=== PATIENT | female | born 1950 | race Caucasian/White ===

== ENCOUNTER 2020-07-31 18:01 | Emergency (ER) | payer MEDICARE, OTHER ==
[~2020-07-31] VITALS: Ht 177.8 cm; Wt 104.0 kg
[2020-07-31] MEDS ORDERED: DIPH,PERTUSS(ACELL),TET VAC/PF 0.5 ML SYRINGE. VAX IM ONE (18:45)
[2020-07-31 18:54] VITALS: BP 131/75
--- NOTE | 2020-07-31 19:41 | RAD ---
Exam: CT head and cervical spine INDICATION: Fall TECHNIQUE: Sequential axial images through the head and cervical spine were obtained without the admi nistration of IV contrast. Exposure: One or more of the following in the visualized dose reduction techniques were utilized for this examination: 1. Automated exposure control 2. Adjustment of the MA and/or KV according to patient size 3. Use of iterative of reconstructive technique Comparisons: None FINDINGS: Head: No focal parenchymal lesion or hemorrhage is identified. There is no midline shift or sulcal effaceme nt. Patchy hypodensity in the periventricular white matter. No acute vascular territory infarction is olivia ntified. Boggs-white distinction is preserved. The ventricular system is within normal limits without compression hydrocephalus. The basal cisterns are well maintained. The visualized portions of the paranasal sinuses and mastoid air cells are well-pneumatized. No acute fractures. Cervical spine: Vertebral body heights and alignment are well-maintained. Fracture to the cervical spine is not identified. Multilevel spondylotic change in cervical spine with degenerative disc disease greatest at C5-C6 and C6-C7. Visualized paraspinal soft tissues are unremarkable. IMPRESSION: 1. No acute intracranial abnormality. 2. Negative CT C-spine for acute traumatic injury. Electronically signed by: aPrdeep Bolaños MD (07/31/2020 7:38 PM) [facility]
[2020-07-31] MEDS ORDERED: BACITRACIN ZINC TOPICAL OINT PACKET. TP ONE (20:00)
--- NOTE | 2020-07-31 20:08 | PHYS DOC ---
Past History Past Medical History: Diabetes, Hypertension (TOAÑ KRAMER APRN) Alcohol Use: None (TOAÑ KRAMER APRN) Adult General Chief Complaint Chief Complaint: MECHANICAL FALL HPI HPI Patient is a 69-year-old female who presents emergency department chief complaint of approximately 1 hour prior to arrival she stumbled while walking i o a doorway and landed on both knees and then hit her face on the ground before she can get her hands out in front of her. Patient denies loss of consciousness, patient states that her glasses hit against her forehead on the left and bent her glasses. Patient complains of bilateral knee pain, and forehead pain. Patient denies neck pain. Patient denies loss of consciousness, denies dizziness, denies visual disturbances. Patient states she is a type II diabetic, has a history of hypertension, states she takes lisinopril and atorvastatin. Patient states she has an allergy to sulfa medications. Patient reports her last tetanus shot may have been greater than 5 years ago. Patient reports her pain at a 2 out of 10 when at rest, however if someone palpates her knees or forehead it increases up to a 7 out of 10. Patient denies chest pain, shortness of breath, cough or congestion. Patient denies nausea, vomiting, diarrhea, patient denies abdominal pains. Patient denies any other physical complaints or physical concerns. (TOÑA KRAMER APRN) Review of Systems Review of Systems 14 body systems of review of systems have been reviewed. See HPI for pertinent positives and negative responses, otherwise all other systems are negative, nonpertinent or noncontributory. (TOÑA KRAMER APRN) Current Medications Current Medications Current Medications Medications (Trade) Dose Ordered Sig/Elisabeth Start Time Stop Time Status Last Admin Dose Admin Bacitracin (Bacitracin Topical Pkt) 1 pkt 1X ONCE 07/31/20 20:00 07/31/20 20:01 DC Diphtheria/ Pertussis/Tetanus Vacc (ADACEL TDap SYRINGE) 0.5 ml ONCE ONCE 07/31/20 18:45 07/31/20 18:46 DC 07/31/20 19:33 0.5 ML (TOÑA KRAMER APRN) Allergies Allergies Allergies Coded Allergies Type Severity Reaction Last Updated Verified Sulfa (Sulfonamide Antibiotics) Allergy Unknown 07/31/20 Yes (TOÑA KRAMER APRN) Physical Exam Physical Exam Constitutional: Well developed, well nourished, no acute distress, non-toxic appearance. 69-year-old female in no apparent distress. HENT: Normocephalic, atraumatic, bilateral external ears normal, oropharynx moist, no oral exudates, nose normal. No skull depressions or contusions appreciated, patient does have an abrasion over the left brow, no malocclusion, no drooling, no trismus. Skin is intact, no battles sign, no raccoon eyes, no drainage from bilateral auditory canals. Eyes: PERRLA, EOMI, conjunctiva normal, no discharge. Neck: Normal range of motion, no tenderness, supple, no stridor. No nuchal rigidity, no meningismus signs. Cardiovascular: No cyanosis, distal cap refill less than 2 seconds. Lungs & Thorax: Patient in no apparent respiratory distress, no audible adventitious lung sounds appreciated. Skin: Warm, dry, no erythema, no rash. See H EENT assessment for skin abrasion note. Back: No tenderness. Extremities: No tenderness, no cyanosis, no clubbing, ROM intact, no edema. Except for bilateral knees, pain to palpation around knee joint, limited passive range of motion related to pain, distal cap refill less than 2 seconds. No swelling appreciated, no crepitus appreciated, 2+ dorsalis pedis/posterior tibial pulses. Neurologic: Alert and oriented X 3, normal motor function, normal sensory function, no focal deficits noted. Psychologic: Affect normal, judgement normal, mood normal. (TOÑA KRAMER APRN) Current Patient Data Vital Signs Vital Signs Date Time Temp Pulse Resp B/P (MAP) Pulse Ox O2 Delivery O2 Flow Rate FiO2 07/31/20 18:54 97.7 75 16 131/75 (93) 98 Room Air (TOÑA KRAMER APRN) EKG EKG [] (TOÑA KRAMER APRN) Radiology/Procedures Radiology/Procedures PATIENT: WANG MERCADO ACCOUNT: [id number] : 1950 LOCATION: ER AGE: 69 SEX: F EXAM STATUS: REG ER ORD. PHYSICIAN: TOÑA KRAMER APRN REASON: fall PROCEDURE: CT HEAD AND CERVICAL SPINE WO Exam: CT head and cervical spine INDICATION: Fall TECHNIQUE: Sequential axial images through the head and cervical spine were obtained without the administration of IV contrast. Exposure: One or more of the following in the visualized dose reduction techniques were utilized for this examination: 1. Automated exposure control 2. Adjustment of the MA and/or KV according to patient size 3. Use of iterative of reconstructive technique Comparisons: None FINDINGS: Head: No focal parenchymal lesion or hemorrhage is identified. There is no midline s hift or sulcal effacement. Patchy hypodensity in the periventricular white matter. No acute vascular territory infarction is identified. Boggs-white distinction is preserved. The ventricular system is within normal limits without compression hydrocephalus . The basal cisterns are well maintained. The visualized portions of the paranasal sinuses and mastoid air cells are well-pneumatized. No acute fractures. Cervical spine: Vertebral body heights and alignment are well-maintained. Fracture to the cervical spine is not identified. Multilevel spondylotic change in cervical spine with degenerative disc disease greatest at C5-C6 and C6-C7. Visualized paraspinal soft tissues are unremarkable. IMPRESSION: 1. No acute intracranial abnormality. 2. Negative CT C-spine for acute traumatic injury. Electronically signed by: Pardeep Veliz MD (07/31/2020 7:38 PM) [facility] DICTATED AND SIGNED BY: PARDEEP VELIZ MD DATE: 07/31/201915 CC: TOÑA KRAMER APRN; [facility] WELLINGTON ~MTH0 0 Signed PATIENT: WANG MERCADO ACCOUNT: [id number] : 1950 LOCATION: ER AGE: 69 SEX: F EXAM STATUS: REG ER ORD. PHYSICIAN: TOÑA KRAMER APRN REASON: fall PROCEDURE: KNEE BILAT 3V EXAM: AP, lateral and oblique views of bilateral knees DATE: 07/31/2020 6:34 PM CLINICAL INDICATION: Reason: fall / Spl. Instructions: / History: COMPARISON: None. FINDINGS: Negative for acute or subacute fracture. Bilateral knee joint osteoarthritis with mild medial compartment joint space narrowing and tricompartment osteophytes, greater on the left. Negative focal soft tissue swelling. Negative retained radiopaque foreign body. Small left knee joint effusion. No right knee joint effusion. Joint body posterior left joint line measuring 2-3 cm. IMPRESSION: 1. No evidence of acute fracture or dislocation. 2. Bilateral knee joint osteoarthritis, greater on the left 3. Small left knee joint effusion. 4. Prominent joint body posterior joint line. Electronically signed by: Fede Lewis MD (07/31/2020 8:11 PM) [facility] DICTATED AND SIGNED BY: FEDE LEWIS MD DATE: 07/31/202008 CC: TOÑA KRAMER APRN; LUIS WELLINGTON ~MTH0 0 (TOÑA KRAMER APRN) Heart Score C/O Chest Pain: No Risk Factors: Risk Factors: DM, Current or recent (<one month) smoker, HTN, HLP, family history of CAD, obesity. Risk Scores: Risk Factors: DM, Current or recent (<one month) smoker, HTN, HLP, family history of CAD, obesity. (TOÑA KRAMER APRN) Course & Med Decision Making Course & Med Decision Making Pertinent Labs and Imaging studies reviewed. (See chart for details) 69-year-old female, vital signs reviewed, presents emergency department after reported fall while walking through a door, patient's physical examination concerning for possible bony injury versus contusion of bilateral knees, forehead abrasion, there is no contusion however patient did states she struck her forehead onto ground before being able to catch herself with her hands. Patient did deny consciousness, patient is not on any blood thinners, the patient denied any C-spine pain, related to patient's age and report of striking head will order CT head and C-spine, bilateral knee x-rays, cleanse and dress abrasions with bacitracin. Patient does not recall when her last tetanus status was, will bring up-to-date with Adacel Tdap today. Offered patient pain medication, patient states that her pain is not that bad and does not feel as if she needs pain medication in the ED today. Patient is ambulatory with steady gait. CT head and C-spine negative for acute process, bilateral knee x-rays negative for acute fracture, did note surgical repair of the right knee, patient did reveal MCL repair in the years ago. Discussed radiologic imaging with patient, diagnosis of contusion and abrasions to bilateral knees, abrasion to forehead, RICE therapy, abrasion care, follow-up with PCP this Monday for ongoing pain management and wound evaluation, offered patient pain medications, patient states her pain was a 1 or 2 still denies need for pain medication in the ED today, patient states she will take [id number] Tylenol and/or NSAIDs at home for aches and pains. Patient gave verbal understanding of discharge home instructions, strict follow- up with PCP this Monday for reevaluation, return to ER precautions and concerns, patient states she is ready to go home, states she is thankful she does not have any brain injury, patient was discharged home without incident. (TOÑA KRAMER APRN) Dragon Disclaimer Dragon Disclaimer This electronic medical record was generated, in whole or in part, using a voice recognition dictation system. (TOÑA KRAMER APRN) Attending Co-Sign The patient was seen and interviewed as well as examined at the bedside. The chart was reviewed. The case was discussed. Agree with the plan of care. (DEMAR CHÁVEZ DO) Departure Departure: Impression: Primary Impression: Fall due to stumbling Additional Impressions: Contusion of knee, left Contusion of knee, right Abrasion of forehead Tetanus-diphtheria vaccination administered at current visit Disposition: 01 HOME / SELF CARE / HOMELESS Condition: GOOD Referrals: LUIS WELLINGTON (PCP) Patient Instructions: Abrasions, Contusion, Knee Wraps (Elastic Bandage) and RICE Additional Instructions: You were seen today in the emergency department after a fall. A CT scan of your head and neck were performed, there were no broken bones or brain injury appreciated, you had complained of bilateral knee pains, x-ray imaging did not show any fractures. We have discussed RICE therapy, rest, ice, compression, elevation, please use your home medications for pain management, please follow- up with Dr. Mireles for ongoing pain management. Please return to the emergency department for worsening symptoms or other concerns. EMERGENCY DEPARTMENT GENERAL DISCHARGE INSTRUCTIONS Thank you for coming to [facility] (ED) today and trusting us with you care. We trust that you had a positivie experience in our Emergency Department. If you wish to speak to the department management, you may call the director at [phone]. YOUR FOLLOW UP INSTRUCTIONS ARE FOLLOWS: 1. Do you have a private Doctor? If you do not have a private doctor, please ask for a resource list of physicians or clinics that may be able to assist you with follow up care. 2. The Emergency Physician has interpreted your x-rays. The X-Ray specialist will also review them. If there is a change in the findings, you will be notified in 48 hours when at all possible. 3. A lab test or culture has been done, your results will be reviewed and you will be notified if you need a change in treatment. ADDITIONAL INSTRUCTIONS AND INFORMATION: 1. Your care today has been supervised by a physician who is specially trained in emergency care. Many problems require more than one evaluation for a complete diagnosis and treatment. We recommend that you schedule your follow up appointment as recommended to ensure complete treatment of you illness or injury. If you are unable to obtain follow up care and continue to have a problem, or if your condition worsens, we recommend that you return to the ED. 2. We are not able to safely determine your condition over the phone nor are we able to give sound medical advice over the phone. For these safety reasons, if you call for medical advice we will ask you to come to the ED for further evaluation. 3. If you have any questions regarding these discharge instructions please call the ED at [phone]. SAFETY INFORMATION: In the interest of safety, wellness, and injury prevention; we encourage you to wear your sealbelt, if you smoke; quite smoking, and we encourage family to use a protective helmet for bicycling and other sporting events that present an increased risk for head injury. IF YOUR SYMPTOMS WORSEN OR NEW SYMPTOMS DEVELOP, OR YOU HAVE CONCERNS ABOUT YOUR CONDITION; OR IF YOUR CONDITION WORSENS WHILE YOU ARE WAITING FOR YOUR FOLLOW UP APPOINTMENT; EITHER CONTACT YOUR PRIMARY CARE DOCTOR, THE PHYSICIAN WHOSE NAME AND NUMBER YOU WERE GIVEN, OR RETURN TO THE ED IMMEDIATELY. Problem Qualifiers Primary Impression: Fall due to stumbling Encounter type: initial encounter Qualified Codes: W01.0XXA - Fall on same level from slipping, tripping and stumbling without subsequent striking against object, initial encounter Additional Impressions: Contusion of knee, left Encounter type: initial encounter Qualified Codes: S80.02XA - Contusion of left knee, initial encounter Contusion of knee, right Encounter type: initial encounter Qualified Codes: S80.01XA - Contusion of right knee, initial encounter Abrasion of forehead Encounter type: initial encounter Qualified Codes: S00.81XA - Abrasion of other part of head, initial encounter TOÑA KRAMER APRN Jul 31, 2020 20:08 DEMAR CHÁVEZ DO Aug 05, 2020 06:18
--- NOTE | 2020-07-31 20:13 | RAD ---
EXAM: AP, lateral and oblique views of bilateral knees DATE: 07/31/2020 6:34 PM CLINICAL INDICATION: Reason: fall / Spl. Instructions: / History: COMPARISON: None. FINDINGS: Negative for acute or subacute fracture. Bilateral knee joint osteoarthritis with mild medial compar tment joint space narrowing and tricompartment osteophytes, greater on the left. Negative focal soft tissue swelling. Negative retained radiopaque foreign body. Small left knee joint effusion. No right knee joint effusion. Joint body posterior left joint line measuring 2-3 cm. IMPRESSION: 1. No evidence of acute fracture or dislocation. 2. Bilateral knee joint osteoarthritis, greater on the left 3. Small left knee joint effusion. 4. Prominent joint body posterior joint line. Electronically signed by: Fede Anderson MD (07/31/2020 8:11 PM) [facility]
== END 2020-07-31 21:00 | disposition home or self-care (01) ==
LOC: ER 18:01
DX: S80.02XA Contusion of left knee, initial encounter (principal); S80.01XA Contusion of right knee, initial encounter; S00.81XA Abrasion of other part of head, initial encounter; E11.9 Type 2 diabetes mellitus without complications; I10 Essential (primary) hypertension; Z23 Encounter for immunization; W01.0XXA Fall on same level from slipping, tripping and stumbling without subsequent striking against object, initial encounter; Y93.89 Activity, other specified; Y92.89 Other specified places as the place of occurrence of the external cause; Y99.8 Other external cause status
CPT/HCPCS: 70450; 72125; 73562; 90471; 90715; 99285-25

== ENCOUNTER 2021-02-14 06:44 | Emergency (ER) | payer OTHER, MEDICARE ==
[~2021-02-14] VITALS: Ht 175.3 cm; Wt 108.0 kg
[2021-02-14 07:05] VITALS: BP 157/72
--- NOTE | 2021-02-14 07:23 | PHYS DOC ---
Past History Past Medical History: Diabetes, Hypertension Alcohol Use: None Adult General Chief Complaint Chief Complaint: MECHANICAL FALL HPI HPI Patient is a 70-year-old female presenting via POV for left upper extremity pain. States she suffered a mechanical fall yesterday while trying to ambulate down stairs in her basement. Reports she missed the last step and subsequently fell on left anterior knee and braced fall on outstretched hand hitting the hand and then left elbow. She did not hit her head, no loss of consciousness, she is not taking any blood thinners. Patient significant other gave unknown amount of either Tylenol or ibuprofen with improvement in pain. Nonetheless, ongoing left wrist and elbow pain prompted her to come in for evaluation. Review of Systems Review of Systems Fourteen body systems of review of systems have been reviewed. See HPI for pertinent positives and negative responses, other mahajan all other systems are negative, non-pertinent or non-contributory Allergies Allergies Allergies Coded Allergies Type Severity Reaction Last Updated Verified Sulfa (Sulfonamide Antibiotics) Allergy Unknown 07/31/20 Yes Physical Exam Physical Exam Constitutional: Well developed, well nourished, no acute distress, non-toxic appearance. HENT: Normocephalic, atraumatic, bilateral external ears normal, oropharynx moist, no oral exudates, nose normal. Eyes: PERRLA, EOMI, conjunctiva normal, no discharge. Neck: Normal range of motion, no midline spinal tenderness, supple, no stridor. Cardiovascular: Heart rate regular, sinus rhythm, no murmurs rubs or gallops Lungs & Thorax: Bilateral breath sounds clear to auscultation Abdomen: Bowel sounds normal, soft, no tenderness, no masses, no pulsatile masses. Nonsurgical abdomen, no peritoneal signs Skin: Warm, dry, no erythema, no rash. Back: No tenderness, no CVA tenderness. Extremities: Tenderness to palpation of left hypothenar eminence and left anatomical snuffbox and left medial portion of elbow with pain during left upper extremity supination, no cyanosis, no clubbing, ROM intact, no edema. 2+ radial pulse bilateral upper extremities, cap refill less than 3 seconds all digits Neurologic: Alert and oriented X 3, cranial nerves II through XII intact, medial radial and ulnar nerves of left upper extremity intact, normal motor & sensory function, no focal deficits noted. Psychologic: Affect normal, judgement normal, mood normal. Current Patient Data Vital Signs Vital Signs Date Time Temp Pulse Resp B/P (MAP) Pulse Ox O2 Delivery O2 Flow Rate FiO2 02/14/21 07:05 97.7 64 16 157/72 (100) 98 Vital Signs Date Time Temp Pulse Resp B/P (MAP) Pulse Ox O2 Delivery O2 Flow Rate FiO2 02/14/21 07:05 97.7 64 16 157/72 (100) 98 EKG EKG [] Radiology/Procedures Radiology/Procedures 3 views left wrist and left elbow AP and oblique views HISTORY: Pain after fall 3 views left wrist: Visualized osseous structures appear normal. 3 views left hand: There is marginal spurring of the interphalangeal joints consistent with osteoporosis. There is no lytic destructive changes. 3 views left elbow: The visualized osseous structures. (No displaced fat pad. IMPRESSION: No acute findings. Electronically signed by: Abilio Aguilar III, MD (02/14/2021 8:34 AM) [facility] Heart Score C/O Chest Pain: No Risk Factors: Risk Factors: DM, Current or recent (<one month) smoker, HTN, HLP, family history of CAD, obesity. Risk Scores: Risk Factors: DM, Current or recent (<one month) smoker, HTN, HLP, family history of CAD, obesity. Course & Med Decision Making Course & Med Decision Making ABCs unremarkable HPI physical exam and comprehensive ER work-up nonconcerning for any emergent or surgical issues, specifically no acute bony abnormalities of left upper extremity which patient was worried about Discussed most likely diagnosis of contusion that should resolve with continued supportive care practices. Patient educated on these extensively with instructions to notify PCP tomorrow for close outpatient follow-up Dragon Disclaimer Dragon Disclaimer This electronic medical record was generated, in whole or in part, using a voice recognition dictation system. Departure Departure: Impression: Primary Impression: Accident due to mechanical fall without injury Additional Impression: Contusion Disposition: 01 HOME / SELF CARE / HOMELESS Condition: STABLE Referrals: LUIS WELLINGTON (PCP) Additional Instructions: You were seen for left knee and left upper extremity pain after a fall. Your pain is most likely due to a contusion and should improve with ice, ibuprofen and/or Tylenol, stretching, and activity. If it does not improve you should follow up with a primary care doctor. You should return to the ED if you develop worsening pain, fever, numbness, tingling, weakness, or any other new or concerning symptoms. Problem Qualifiers JESSICA AGUILERA DO Feb 14, 2021 07:23
[2021-02-14] MEDS ORDERED: ACETAMINOPHEN 325 MG TABLET PO ONE (07:45)
--- NOTE | 2021-02-14 08:37 | RAD ---
3 views left wrist and left elbow AP and oblique views HISTORY: Pain after fall 3 views left wrist: Visualized osseous structures appear normal. 3 views left hand: There is marginal spurring of the interphalangeal joints consistent with osteoporosis. There is no ly tic destructive changes. 3 views left elbow: The visualized osseous structures. (No displaced fat pad. IMPRESSION: No acute findings. Electronically signed by: Abilio Aguilar III, MD (02/14/2021 8:34 AM) [facility]
== END 2021-02-14 08:55 | disposition home or self-care (01) ==
LOC: ER 06:44
DX: S50.02XA Contusion of left elbow, initial encounter (principal); E11.9 Type 2 diabetes mellitus without complications; I10 Essential (primary) hypertension; Z88.2 Allergy status to sulfonamides; W10.8XXA Fall (on) (from) other stairs and steps, initial encounter; Y93.89 Activity, other specified; Y92.89 Other specified places as the place of occurrence of the external cause; Y99.8 Other external cause status
CPT/HCPCS: 73080; 73110; 73130; 99284